=== PATIENT | male | born 1995 | race Two or more races ===

== ENCOUNTER 2020-05-11 15:42 | Emergency (ER) | payer MEDICAID, SELFPAY ==
[2020-05-11 17:11] VITALS: BP 140/76; PULSE 66; RESP 14; TEMP 37; O2SAT 100; BMI 18.2
[2020-05-11] MEDS: Tetracaine HCl/PF 0.5% Oph Sol 4 ML DROPS 2 DROP EYE-RIGHT (19:16)
[2020-05-11] MEDS: Fluorescein Sodium STRIP 1 STRIP EYE-RIGHT (19:16)
--- NOTE | 2020-05-11 19:50 | ED_ITS ---
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 chief complaint: eye pain Onset (ago): hour(s) Onset description: gradual Location: right eye Eye Symptoms: redness and foreign body sensation Place: work Mechanism: other (Foreign body) Severity: moderate Associated symptoms: none Treatments Prior to Arrival: none Related Data Patient tetanus UTD: Yes Previous Rx's Medication Instructions Recorded erythromycin 0.5 inch OPHTHALMIC (EYE) QID #3.5 05/11/20 g Allergies Allergy/AdvReac Type Severity Reaction Status Date / Time No Known Allergies Allergy Verified 05/11/20 18:48 Review of Systems Review of Systems: Constitutional: No Weight loss, No Fever, No Chills, No Night Sweats, No Fatigue, No Malaise ENT/Mouth: No Hearing loss, No Ear Pain, No Nasal Congestion, No Sinus Pain, No Hoarseness, No sore throat, No Rhinorrhea, No Swallowing Difficulty Eyes: No Eye Pain, No Swelling, + Redness, + Foreign Body, No Discharge, No Vision Changes Cardiovascular: No Chest Pain, No SOB, No Dyspnea on Exertion, No Orthopnea, No Edema, No Palpitations Respiratory: No Cough, No Sputum, No Wheezing, No Smoke Exposure, No Dyspnea Musculoskeletal: No joint pain, No Myalgias, No Joint Swelling Skin: No Skin Lesions, No rash Neuro: No Weakness, No Numbness, No Paresthesias, No Loss of Consciousness, No Dizziness, No Headache Psych: No Social Issues Heme/Lymph: No Bruising, No Bleeding,No Lymphadenopathy Endocrine: No Polyuria, No Polydipsia, No Temperature Intolerance Yes all other systems are reviewed and are negative [facility] Social History Social History Advance Directives: No Advance Directives Information Provided: Yes Physical Exam Vital Signs: Vital Signs: Last Vital Signs Temp 98.6 F 05/11/20 17:11 Pulse 66 05/11/20 17:11 Resp 14 05/11/20 17:11 BP 140/76 H 05/11/20 17:11 Pulse Ox 100 05/11/20 17:11 Body Mass Index 18.2 Reviewed Const: General: cooperative, healthy appearing, comfortable, no acute distress, well developed, alert and awake HENMT: Head: Yes normal to inspection Ears: hearing grossly normal bilaterally Eyes: Visual Irene: normal visual irene by confrontation Eyelids: Yes eyelids normal Conjunctivae: conjunctival abnormal (Erythema) right and diffuse Sclerae: sclerae normal Corneas: fluorescein used (No corneal abrasion) Pupils: Equal, round and reactive pupils present EOM: EOMs intact bilaterally Direct Ophthalmoscopy: normal light reflex Eyes/upper lids images: 1. Small piece of dark appearing particle removed after patient was given tetracaine and stained. Exam with Wood's lamp no corneal abrasion. No foreign body under the lids. Feels better after examination. Irrigated x1 with 10 cc ns. Neck: Neck: Yes normal visual inspection Chest: Chest palpation & inspection: normal inspection of the chest and normal palpation of entire chest wall Resp: Effort & Inspection: normal respiratory effort, no audible wheezes, no c ough and no respiratory distress : General: Yes no CVA tenderness Back/Spine/Pelvis: Back: no CVA tenderness Cervical Spine: No Lhermitte's sign positive and No pain with cervical ROM Thoracic/Lumbar Spine: thoracic and lumbar spine normal to inspection Skin: General skin exam: no rashes or lesions noted, elasticity normal and turgor normal Wounds: no wounds Nails: normal Neuro: Cranial nerves: Yes Equal, round and reactive pupils present Psych: Appearance: grossly normal and well kempt Discharge Plan Discharge Clinical Impression: Eye foreign bodies Qualifiers: Encounter type: initial encounter Laterality: right Qualified Code(s): T15.91XA - Foreign body on external eye, part unspecified, right eye, initial encounter Patient Disposition: Home, Self-Care Instructions: Eye Foreign Body (ED) Prescriptions: New erythromycin 5 mg/gram (0.5 %) ointment 0.5 inch ophthalmic (eye) QID Qty: 3.5 RF: 0 Referrals: Constantine Vargas [Physician] - 2 days Archie Jauregui PIPE CAULKER [Emergency Midlevel Provider] - 2 days Physician,Unknown [Primary Care Provider] - 2 days ([facility]) Stand Alone Forms: Work/School Release
== END 2020-05-11 20:05 | disposition home or self-care (01) ==
PROVIDERS: Emergency Provider Internal Medicine
DX: H57.11 Ocular pain, right eye (principal); T15.01XA Foreign body in cornea, right eye, initial encounter; Y29.XXXA Contact with blunt object, undetermined intent, initial encounter; Y93.89 Activity, other specified; Y92.9 Unspecified place or not applicable; Y99.9 Unspecified external cause status
CPT/HCPCS: 99283

== ENCOUNTER 2021-09-03 22:49 | Emergency (ER) | payer MEDICAID, SELFPAY ==
[2021-09-03 22:55] VITALS: BP 130/89; PULSE 92; O2SAT 100
[2021-09-03 23:08] VITALS: BP 118/80; PULSE 71; RESP 16; TEMP 37; O2SAT 100; BMI 20.9
[2021-09-03 23:37] LABS: COVID-19 Test Negative (Negative); IDNOW Serial# 16C4AD1C
--- NOTE | 2021-09-04 00:41 | ED_ITS ---
HPI - General Adult General Chief complaint: Headache <DARRYN Don Last Filed: 09/04/21 01:36> Stated complaint: n/v <DARRYN Don Last Filed: 09/04/21 01:36> Time Seen by Provider: 09/04/21 00:37 <DARRYN Don Last Filed: 09/04/21 01:36> Source: patient <DARRYN Don Last Filed: 09/04/21 01:36> Mode of arrival: ambulatory <DARRYN Don Last Filed: 09/04/21 01:36> Limitations: no limitations <DARRYN Don Last Filed: 09/04/21 01:36> History of Present Illness HPI narrative: This is a 26-year-old male no significant medical history presenting to the emergency department with headache, nausea and vomiting x4 hours. Patient tells me that he has had 3 episodes of nausea and vomiting it appears as though he vomited his food. He also tells me has a headache, diffuse, no vision changes or dizziness associated with it feels like his typical headache. He tells me he has not been around anyone who is sick. He denies chest pain, shortness of breath, diarrhea, abdominal pain, weakness, vision changes, dizziness. Patient has had no head trauma, not on blood thinners. <DARRYN Don Last Filed: 09/04/21 01:36> Onset (ago): hour(s) (4) <DARRYN Don Last Filed: 09/04/21 01:36> Location: head <DARRYN Don Last Filed: 09/04/21 01:36> Radiation: non-radiation <DARRYN Don Last Filed: 09/04/21 01:36> Severity: moderate <DARRYN Don Last Filed: 09/04/21 01:36> Pain Consistency: constant <DARRYN Don Last Filed: 09/04/21 01:36> Relieving factors: none <DARRYN Don Last Filed: 09/04/21 01:36> Exacerbating factors: none <DARRYN Don Last Filed: 09/04/21 01:36> Associated symptoms: denies other symptoms <DARRYN Don Last Filed: 09/04/21 01:36> Treatments prior to arrival: none <DARRYN Don Last Filed: 09/04/21 01:36> Related Data Home medications: Previous Rx's Medication Instructions Recorded erythromycin 5 mg/gram (0.5 %) eye 0.5 inch OPHTHALMIC (EYE) QID #3.5 05/11/20 ointment g ondansetron 4 mg disintegrating 4 mg PO ONCE PRN #10 tab 09/04/21 tablet <DARRYN Don Last Filed: 09/04/21 01:36> Allergies/adverse reactions: Allergies Allergy/AdvReac Type Severity Reaction Status Date / Time No Known Allergies Allergy Verified 09/03/21 23:11 <DARRYN Don Last Filed: 09/04/21 01:36> Review of Systems Review of Systems: Constitutional : No Weight loss, No Fever, No Chills, No Fatigue, No Malaise ENT/Mouth : No sore throat, No Rhinorrhea Eyes: No Eye Pain, No Swelling, No Redness Cardiovascular : No Chest Pain, No SOB, No Dyspnea on Exertion, No Orthopnea, No Edema, No Palpitations Respiratory : No Cough, No Sputum, No Wheezing Gastrointestinal : + Nausea, + Vomiting, No Diarrhea, No Constipation, No abdominal Pain, No Hematochezia, No Melena Genitourinary : No Dysuria, No Urinary Frequency, No Hematuria, Musculoskeletal : No joint pain, No Myalgias, No Joint Swelling Skin : No Skin Lesions, No rash Neuro : No Weakness, No Numbness, No Dizziness, + Headache Psych : No Anxiety/Panic, No Depression All other systems reviewed and are negative <DARRYN Don Last Filed: 09/04/21 01:36> Yes all other systems are reviewed and are negative <DARRYN Don Last Filed: 09/04/21 01:36> [facility] Past Medical History Attestation statement: The following information was validated with the patient. <DARRYN Don - Last Filed: 09/04/21 01:36> Source: old records reviewed and nursing notes reviewed <DARRYN Don - Last Filed: 09/04/21 01:36> Social History Social History: Social History Advance Directives: No Advance Directives Information Provided: Yes <DARRYN Don - Last Filed: 09/04/21 01:36> Physical Exam ED Vital Signs: Vital Signs - 24 hr 09/03/21 23:08 Temperature 98.6 F Pulse Rate 71 Respiratory Rate 16 Blood Pressure 118/80 Pulse Oximetry 100 BMI result Body Mass Index 20.9 VSS <DARRYN Don - Last Filed: 09/04/21 01:36> Appearance: Alert.? Oriented X3.? No acute distress.? Head: Normocephalic, atraumatic, no step-offs or deformities Eyes: Pupils equal, round and reactive to light.? Extraocular movements intact. ENT: Pharynx normal.? Neck: Normal inspection.? Neck supple.? CVS: Normal heart rate and rhythm.? Pulses normal.? Respiratory: No respiratory distress.? Breath sounds normal.? Abdomen: Soft and nontender.? Negative Rovsing, McBurney's point, Mccrary's, obturator and psoas. Skin: Skin warm and dry.? Normal skin color.? Normal skin turgor.? Extremities: No lower extremity edema.? No calf ttp. 5/5 strength to bilateral upper and lower extremities Back: No midline tenderness, no C-spine tenderness, full range of motion, no CVA tenderness bilaterally Neuro: Oriented X 3.? No motor deficit.? No sensory deficit. CN 2-12 intact <DARRYN Don - Last Filed: 09/04/21 01:36> Course Reevaluation(s) Reevaluation #1: Slight leukocytosis likely secondary to reactivity from vomiting. COVID negative. At this time nausea and vomiting likely secondary to viral infection. Patient was given Zofran and he has not had any other episodes of vomiting. He is not tender to palpation of the abdomen. For this reason an abdominal CT was not ordered. Unlikely appendicitis, cholecystitis. No signs of acute abdomen. Patient will be discharged home with Zofran. Gave him strict return precautions and advised him to return with new or worsening symptoms. Comfortable discharge home <DARRYN Don - Last Filed: 09/04/21 01:36> Time: 01:36 <DARRYN Don - Last Filed: 09/04/21 01:36> Medical Decision Making [facility] Narrative Medical decision making narrative: 0040 26 yo m no pmhx presents to the emergency department with complaints of nausea, vomiting and headache x4 hour. Headache feels like his typical headache no warning signs or red flags. Patient is not on blood thinners he denies head trauma. Physical examination benign. Not tender on palpation to abdomen. Negative Mccrary's, McBurney's point, Rovsing, obturators and psoas. Unlikely that this is appendicitis or cholecystitis. History and physical examination not consistent with ICH. No weakness no focal neuro deficits. No trauma. No need for head CT at this time. Plan is basic labs and Zofran. <DARRYN Don - Last Filed: 09/04/21 01:36> Medical Records Medical records reviewed: Yes I reviewed the patient's medical records. <DARRYN Don - Last Filed: 09/04/21 01:36> Lab Data Lab results reviewed: Yes I reviewed the patient's lab results. <DARRYN Don Last Filed: 09/04/21 01:36> Result diagrams: : 09/04/21 01:06 09/04/21 01:06 <DARRYN Don Last Filed: 09/04/21 01:36> Labs: Lab Results 09/03/21 09/04/21 09/04/21 Range/Units 23:19 01:06 01:06 WBC 12.5 H (4.8-10.8) X10*3/uL RBC 5.23 (4.60-5.80) X10*6/uL Hgb 13.5 L (14.0-18.0) g/dl Hct 42.0 (42.0-52.0) % MCV 80.3 (80.0-98.0) fL MCH 25.8 L (27.0-33.0) pg MCHC 32.1 (31.0-36.0) g/dl RDW 13.2 (11.0-16.0) % Plt Count 268 (160-400) X10*3/uL MPV 9.2 L (9.4-12.4) fL Immature Gran % (Auto) 0.3 (0.0-0.4) % Neut % (Auto) 81.3 H (45-73) % Lymph % (Auto) 12.6 L (20-40) % Fajardo % (Auto) 5.4 (2-11) % Eos % (Auto) 0.2 (0-4) % Baso % (Auto) 0.2 (0-2) % Lymph # (Auto) 1.6 (1.2-4.9) X10*3/uL Fajardo # (Auto) 0.7 (0.1-1.2) X10*3/uL Eos # (Auto) 0.0 (0.0-0.4) X10*3/uL Baso # (Auto) 0.0 (0.0-0.2) X10*3/uL Abs Immat Gran (auto) 0.04 H (0.00-0.03) X10*3/uL Absolute Neuts (auto) 10.2 H (2.0-8.3) x10*3/uL Absolute Nucleated RBC 0.000 (0.0-0.012) X10*3/uL Nucleated RBC % (auto) 0.0 (0.0-0.2) /100WBC Sodium 137 (135-145) mmol/L Potassium 4.3 (3.3-5.1) mmol/L Chloride 102 (96-108) mmol/L Carbon Dioxide 25 (22-29) mmol/L Anion Gap 14 (12-20) BUN 21 H (9-16) mg/dL Creatinine 0.82 (0.5-1.4) mg/dL Estim Creat Clear Calc 113.8 Estimated GFR > 60 Random Glucose 107 (60-115) mg/dL Calcium 9.6 (8.4-10.2) mg/dL Total Bilirubin 0.3 (0.0-1.0) mg/dL AST 18 (5-37) U/L ALT 13 (0-40) U/L Alkaline Phosphatase 50 (39-117) U/L Total Protein 7.7 (6.5-8.0) g/dL Albumin 4.5 (3.5-5.0) g/dL Lipase 25 (8-78) U/L COVID-19 ([facility]) Negative (Negative) COVID-19 Clin Com See Note <DARRYN Don Last Filed: 09/04/21 01:36> Critical Care Time Critical Care Time Critical Care Time: No <DARRYN Don Last Filed: 09/04/21 01:36> Discharge Plan Discharge Clinical Impression: Nausea & vomiting <DARRYN Don Last Filed: 09/04/21 01:36> Patient Disposition: Home, Self-Care <DARRYN Don Last Filed: 09/04/21 01:36> Instructions: Acute Nausea and Vomiting (ED) <DARRYN Don Last Filed: 09/04/21 01:36> Additional Instructions: Take your medications as prescribed. If you were prescribed antibiotics today, it is important that you take your medication to their entirety, do not skip any doses, do not finish them early. Follow-up with your primary care provider this week. Return to the emergency department with new or worsening symptoms. Such as fevers, chills, chest pain, shortness of breath, nausea, vomiting, dizziness, headache, vision changes, lethargy In case of emergency call 911 <DARRYN Don Last Filed: 09/04/21 01:36> Prescriptions: New ondansetron 4 mg tablet,disintegrating 4 mg PO ONCE PRN (Reason: nausea and vomiting) Qty: 10 0RF No Action erythromycin 5 mg/gram (0.5 %) ointment 0.5 inch ophthalmic (eye) QID Qty: 3.5 0RF <DARRYN Don Last Filed: 09/04/21 01:36> Referrals: Physician,Unknown J [Primary Care Provider] - 2 days <DARRYN Don Last Filed: 09/04/21 01:36> Stand Alone Forms: Work/School Release <DARRYN Don - Last Filed: 09/04/21 01:36> Interventions: ED Discharge Assessment Last Done: 09/04/21 01:48 <DARRYN Don - Last Filed: 09/04/21 01:36> Discharge Date/Time: 09/04/21 01:48 <DARRYN Don - Last Filed: 09/04/21 01:36>
[2021-09-04] MEDS: Ondansetron ODT 4 MG TAB.RAPDIS TRANSLINGU (01:06)
[2021-09-04 01:11] LABS: MANUAL DIFF FLAG NO
[2021-09-04 01:12] LABS: Basophils Percent Auto 0.2 % (0-2); Eosinophils Percent Auto 0.2 % (0-4); Hemoglobin 13.5 g/dl (14.0-18.0); Imm Gran Abs Auto 0.04 X10*3/uL (0.00-0.03); Imm Gran Pct Auto 0.3 % (0.0-0.4); Lymphocytes Absolute Auto 1.6 X10*3/uL (1.2-4.9); Lymphocytes Percent Auto 12.6 % (20-40); Mean Corpuscular HGB Conc 32.1 g/dl (31.0-36.0); Mean Corpuscular Hemoglobin 25.8 pg (27.0-33.0); Mean Corpuscular Volume 80.3 fL (80.0-98.0); Mean Platelet Volume 9.2 fL (9.4-12.4); Monocytes Absolute Auto 0.7 X10*3/uL (0.1-1.2); Monocytes Percent Auto 5.4 % (2-11); Neutrophils Absolute Auto 10.2 x10*3/uL (2.0-8.3); Neutrophils Percent Auto 81.3 % (45-73); Platelet Count 268 X10*3/uL (160-400); Red Blood Count 5.23 X10*6/uL (4.60-5.80); Red Cell Distribution Width 13.2 % (11.0-16.0); White Blood Count 12.5 X10*3/uL (4.8-10.8)
[2021-09-04 01:31] LABS: Alanine Aminotransferase 13 U/L (0-40); Albumin Level 4.5 g/dL (3.5-5.0); Alkaline Phosphatase 50 U/L (39-117); Anion Gap 14 (12-20); Aspartate Amino Transferase 18 U/L (5-37); Bilirubin Total 0.3 mg/dL (0.0-1.0); Blood Urea Nitrogen 21 mg/dL (9-16); Calcium 9.6 mg/dL (8.4-10.2); Carbon Dioxide 25 mmol/L (22-29); Chloride 102 mmol/L (96-108); Creatinine Clr Calc Pharmacy 113.8; Estimated Glomerular Filt Rate > 60; Glucose Random 107 mg/dL (60-115); Lipase 25 U/L (8-78); Potassium 4.3 mmol/L (3.3-5.1); Sodium 137 mmol/L (135-145); Total Protein 7.7 g/dL (6.5-8.0)
== END 2021-09-04 01:48 | disposition home or self-care (01) ==
PROVIDERS: Physician Assistant; Emergency Provider Emergency Medicine
DX: R11.2 Nausea with vomiting, unspecified (principal); R51.9 Headache, unspecified; Z20.822 Contact with and (suspected) exposure to COVID-19
CPT/HCPCS: 36415; 80053; 83690; 85025; 87635; 99283

== ENCOUNTER 2021-11-04 07:48 | Emergency (ER) | payer OTHER, MEDICAID, SELFPAY ==
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
[2021-11-04 08:19] VITALS: BP 143/92; PULSE 72; RESP 18; TEMP 36.1; O2SAT 100; BMI 19.3
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
== END 2021-11-04 10:24 | disposition home or self-care (01) ==
PROVIDERS: Emergency Provider Emergency Medicine
DX: S80.01XA Contusion of right knee, initial encounter (principal); S20.222A Contusion of left back wall of thorax, initial encounter; M54.2 Cervicalgia; V43.52XA Car driver injured in collision with other type car in traffic accident, initial encounter; Y93.9 Activity, unspecified; Y92.410 Unspecified street and highway as the place of occurrence of the external cause; Y99.9 Unspecified external cause status
CPT/HCPCS: 71046; 72040; 73010; 73562; 99283

== ENCOUNTER 2025-06-14 10:16 | Emergency (ER) | payer MEDICAID, SELFPAY ==
--- NOTE | ~2025-06-14 | XR_ITS ---
CLINICAL HISTORY: cough 2 view chest x-ray. Comparison: None Findings: The lungs are adequately expanded. No focal consolidation. No effusion or pneumothorax. Cardiac and mediastinal contours are within normal limits. No acute osseous abnormality Impression: No acute process. This document has been electronically signed by: Siva Verdugo MD on 06/14/2025 12:00:08
[2025-06-14 10:20] VITALS: BP 126/72; PULSE 106; RESP 18; TEMP 37.1; O2SAT 98; BMI 19.7
[2025-06-14 10:47] LABS: Strep A Nucleic Acid Negative (Negative)
[2025-06-14 11:26] LABS: Resp Syncy Virus RNA Qual PCR NEGATIVE (Negative); SARS COV2 PCR INHOUSE NEGATIVE (Negative)
--- NOTE | 2025-06-14 11:44 | ED_ITS ---
HPI - General Adult General Chief complaint: General Medical Stated complaint: has a cold Time Seen by Provider: 06/14/25 11:35 Source: patient Mode of arrival: ambulatory Limitations: no limitations History of Present Illness ED Provider: Milla Gross APRN HPI narrative: 29-year-old male with no known medical history presents the ER with complaints of 48 hours of chills, cough, diarrhea and sore throat. Denies fever, chest pain, abdominal pain, shortness of breath, skin rash, neck pain/stiffness. No recent travel or sick contact. Related Data Previous Rx's ?Medication ?Instructions ?Recorded erythromycin 5 mg/gram (0.5 %) eye 0.5 inch ophthalmic (eye) QID 05/11/20 ointment Right eye #3.5 grams ondansetron 4 mg disintegrating 4 mg PO ONCE PRN nause a and 09/04/21 tablet vomiting #10 tabs Allergies Allergy/AdvReac Type Severity Reaction Status Date / Time No Known Allergies Allergy Verified 06/14/25 10:22 Review of Systems Review of Systems: Yes all other systems are reviewed and are negative Constitutional: Constitutional: Reports no additional constitutional complaints, Denies body ache(s), Reports chills, Denies fever(s), Denies headache(s) and Denies weakness Eyes: Eyes: Reports no additional eye complaints and Denies change in vision ENT: Reports system reviewed and no additional complaints, except as documented, Denies dizziness, Denies headache(s), Denies nasal congestion, Denies nasal discharge, Denies neck pain and Reports sore throat Cardiovascular: Cardiovascular: Reports no additional cardiovascular complaints, Denies chest pain, Denies leg edema and Denies dyspnea Respiratory: Respiratory: Reports no additional respiratory complaints, Reports cough and Denies dyspnea Gastrointestinal: Gastrointestinal: Reports no additional gastrointestinal complaints, Denies abdominal pain, Reports diarrhea, Denies nausea and Denies vomiting Genitourinary: Genitourinary: Denies urinary incontinence Musculoskeletal: Musculoskeletal: Reports no additional musculoskeletal complaints, Denies back pain, Denies arthralgias, Denies joint swelling, Denies neck pain, Denies numbness and Denies tingling Integumentary/Breasts: Skin/Breast: Reports system reviewed and no additional complaints, except as docu and Denies rash Neurologic: Reports system reviewed and no additional complaints, except as documented, Denies Abnormal speech present, Denies dizziness, Denies headache(s), Denies numbness, Denies tingling and Denies weakness PMFSH Past Medical History Attestation statement: The following information was validated with the patient. Source: old records reviewed and nursing notes reviewed Social History Social History Advance Directives: No Advance Directives Information Provided: Yes Do you have a plan to hurt others: No Plan Physical Exam ED Vital Signs: Vital Signs - 24 hr 06/14/25 10:20 06/14/25 11:48 Temperature 98.8 F 98.8 F Pulse Rate 106 H 106 H Respiratory Rate 18 18 Blood Pressure 126/72 126/72 Pulse Oximetry 98 98 Oxygen Delivery Method Room Air Room Air BMI result Body Mass Index 19.7 Const General: cooperative, healthy appearing, comfortable and no acute distress Orientation/consciousness: patient oriented x3 Limitations: no limitations HENMT Head: Yes normal to inspection Ears: hearing grossly normal bilaterally and TM's normal bilaterally General nose exam: Normal external nose present Face and sinus: Yes normal facial exam Mouth: Normal oral and palatal mucosa present Throat: Yes posterior oropharynx normal, Yes tonsils normal and Yes uvula midline Eyes General: appearance normal, both eyes and all related structures Pupils: Equal, round and reactive pupils present Neck Neck: Yes normal visual inspection, Yes full ROM, Yes no lymphadenopathy and Yes no meningeal signs Chest Chest palpation & inspection: normal inspection of the chest Resp Effort & Inspection: normal respiratory effort Auscultation: clear to auscultation bilaterally Cardio Rate: regular rate Rhythm: regular rhythm Peripheral pulses: Peripheral pulses 2+ throughout GI Inspection: Yes normal to inspection Palpation (GI): Soft to palpation and nontender Auscultation: normal bowel sounds Back/Spine/Pelvis Thoracic/Lumbar Spine: thoracic and lumbar spine normal to inspection Skin General skin exam: no rashes or lesions noted Neuro General: patient oriented x3, no meningeal signs, no focal motor deficits and normal sensation to monofilament Cranial nerves: Yes Equal, round and reactive pupils present Cognition (Neuro): normal cognition Speech: No Abnormal speech present Gait exam (Neuro): Normal gait present Motor exam (neuro): 5/5 motor strength present throughout Extrem General: Yes normal to inspection Medical Decision Making Medical Decision Making MDM Narrative: 29-year-old male with no known medical history presents the ER with complaints of 48 hours of chills, cough, diarrhea and sore throat. Denies fever, chest pain, abdominal pain, shortness of breath, skin rash, neck pain/stiffness. No recent travel or sick contact. exam is benign Vitals are stable. Influenza a is positive I independently reviewed the chest x-ray which shows no signs of pneumonia. Patient is aware that final review is pending by Radiology recommend supportive measures, fluids at home, Motrin and Tylenol as needed. Discussed Tamiflu and declined. Reviewed worrisome signs and symptoms of when to return to the emergency room. Comfortable plan for discharge home. Differential Diagnosis Differential Diagnoses: The differential diagnosis associated with the presentation includes Influenza, strep pharyngitis, otitis media, viral syndrome, pneumonia Admission/Observation Consideration of admission/observation: Escalation of care including admission/observation considered influenza a positive. no hypoxia or tachypnea requiring supplemental oxygen and or admission Lab Data [facility] Lab Attestation statement: I reviewed the patient's lab results. Labs: Lab Results 06/14/25 Range/Units 10:32 Influenza Type A (PCR) POSITIVE A (Negative) Influenza Type B (PCR) NEGATIVE (Negative) RSV RNA Qual (PCR) NEGATIVE (Negative) SARS-CoV-2 RNA (RT-PCR) NEGATIVE (Negative) S. pyogenes GrpA KIM Negative (Negative) Independent Interpretation I performed an independent interpretation of an: Plain X-Ray Interpretation: I independently viewed the x-ray and agree with the radiologist's Radiology Impression Discussion of test interpretation with radiology: I have reviewed the radiologist's reading. Radiologist Impression: [address] [address] XRay Report Signed Patient: April Rock MR#: [id number] : 1995 Acct:[id number] Age/Sex: 29 / M ADM Date: 06/14/25 Loc: HO.ED Attending Dr: Ordering Physician: Kirsten Eden Date of Service: 06/14/25 Procedure(s): XR chest 2V Accession Number(s): [id number] cc: Kirsten Eden; Physician,Unknown ~ Reason for Exam: cough CLINICAL HISTORY: cough 2 view chest x-ray. Comparison: None Findings: The lungs are adequately expanded. No focal consolidation. No effusion or pneumothorax. Cardiac and mediastinal contours are within normal limits. No acute osseous abnormality Impression: No acute process. This document has been electronically signed by: Siva Verdugo MD on 06/14/2025 12:00:08 Prescription Management I considered prescription management with: Antiviral Discharge Plan Discharge Clinical Impression: Influenza A Patient Disposition: Home, Self-Care Instructions: Influenza (ED) Additional Instructions: Influenza A PCR POSITIVE A Negative Influenza B PCR NEGATIVE Negative RSV RNA QualPCR NEGATIVE Negative SARSCOV2 RT-PCR NEGATIVE Negative Alternate motrin/tylenol for pain or fever Increase fluids, rest Follow-up with your PCP as needed Prescriptions: No Action erythromycin 5 mg/gram (0.5 %) ointment 0.5 inch ophthalmic (eye) QID Qty: 3.5 0RF ondansetron 4 mg tablet,disintegrating 4 mg PO ONCE PRN (Reason: nausea and vomiting) Qty: 10 0RF Referrals: [place] [Physician, Medical] Stand Alone Forms: Work/School Release Interventions: ED Discharge Assessment Last Done: 06/14/25 11:48 Print Language: Amharic
[2025-06-14 11:48] VITALS: BP 126/72; PULSE 106; RESP 18; TEMP 37.1; O2SAT 98
--- OUTSIDE RECORDS SUMMARY | 2025-06-14 11:50 | XMS_ITS | Clinical Summary ---
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 Name Role Phone Unavailable Primary Care Provider Unavailabl e Social History Tobacco Use Types Packs/Day Years Used Date Smoking Tobacco: Never Assessed Sex and Gender Information Value Date Recorded Sex Assigned at Male 04/25/2022 10:15 AM EDT Legal Sex Male 10:15 AM EDT Gender Identity Male 04/25/2022 10:15 AM EDT Sexual Orientation Straight 04/25/2022 10 :15 AM EDT Last Filed Vital Signs Vital Sign Reading Time Taken Comments Blood Pressure 110/80 03/22/2022 12:09 AM EDT Pulse 60 03/22/2022 12:09 AM EDT Temperature - - Respiratory Rate - - Oxygen Saturation - - Inhaled Oxygen Concentration - - Weight 51.9 kg (114 lb 6.4 oz) 03/22/2022 12:09 AM EDT Height 166 cm (5' 5.35 ) 03/22/2022 12:09 AM EDT Body Mass Index 18.83 03/22/2022 12:09 AM EDT Plan of Treatment Health Maintenance Due Date Last Done Comments Depression Screening 1995 Disability Screening 1995 Alcohol/Substance Use Screening 2007 Tobacco Screening 2007 Family Planning (PISQ) 09/01/2010 Hepatitis B Vaccines (1 of 3 - 19+ 3-dose series) 09/01/2014 HPV Vaccines (2 - Male 3-dos e series) 07/03/2015 06/05/2015 COVID-19 Vaccine (1 - 2024-2 6 season) 2025 Influenza Vaccine (#1) 2025 , 04/16/2020 DTaP/Tdap/Td Vaccines (2 - T d or Tdap) 03/22/2032 03/22/2022 Zoster Vaccines (1 of 2) 09/01/2045 RSV Patients and Patients Aged 60 years or older (1 - 1-dose 75+ series) 09/01/2070 Hepatitis A Vaccines Aged Out 06/05/2015 No long er eligible based on patient's age to complete this topic Meningococcal Vaccine Aged Out 06/05/2015 No dariana janelle eligible based on patient's age to complete this topic HIV Screening Completed 03/22/2022, 04/27/2020 Hepatitis C Screening Completed 03/22/2022 , 04/27/2020 HIB Vaccines Aged Out No longer eligi ble based on patient's age to complete this topic IPV Vaccines Aged Out No longer eligi ble based on patient's age to complete this topic Meningococcal B Vaccine Aged Out No l onger eligible based on patient's age to complete this topic Pneumococcal Vaccine: Pediatrics (0 to 5 Years) and At-Risk Patients (6 to 49) Years Aged Out No longer eligible b ased on patient's age to complete this topic RSV under 20 months Aged Out No longe r eligible based on patient's age to complete this topic Rotavirus Vaccines Aged Out No longer eligible based on patient's age to complete this topic Procedures Procedure Name Priority Date/Time Associated Diagnosis Comments ZZZ HISTORICAL HEPATITIS C AB W/REFL TO HCV RNA, QN, PCR Routine 03/22/2022 10:31 AM EDT HIV 1/2 ANTIGEN/ANTIBODY, FOURTH GENERATION W/RFL Routine 03/22/2022 10:31 AM EDT from Last 3 Months or Most Recently Relevant to Health Maintenance Results * HEPATITIS C AB W/REFL TO HCV RNA, QN, PCR (03/22/2022 10:31 AM EDT) HEPATITIS C ANTIBODY NON-REACT CORTNEY NON-REACT CORTNEY [facility] INDEX 0.08 <1.00 [facility] Comment: HCV antibody was non-reactive. There is no laboratory evidence of HCV infection. In most cases, no further action is required. However, if recent HCV exposure is suspected, a test for HCV RNA (test code 12722) is suggested. For additional information please refer to http://education.RealPage/faq/LIO51c9 (This link is being provided for informational/ educational purposes only.) 03/22/2022 10:3 1 AM EDT Ilia Lozano MD HISTORICAL/NON ORDERABLE LABS Fi nal Result Performing Organization Address [facility] de Phone Number [facility] [address] [place] [address], * HIV 1/2 ANTIGEN/ANTIBODY,FOURTH GENERATION W/RFL (03/22/2022 10:31 AM EDT) HIV-1/2 ANTIGEN AND ANTIBODIES, 4TH GENERATION W/ REFLEX NON-REACT CORTNEY NON-REACT CORTNEY [facility] Comment: HIV-1 antigen and HIV-1/HIV-2 antibodies were not detected. There is no laboratory evidence of HIV infection. PLEASE NOTE: This information has been disclosed to you from records whose confidentiality may be protected by state law. If your state requires such protection, then the state law prohibits you from making any further disclosure of the information without the specific written consent of the person to whom it pertains, or as otherwise permitted by law. A general authorization for the release of medical or other information is NOT sufficient for this purpose. For additional information please refer to http://education.Bingo.com.NetScaler/faq/YRS764 (This link is being provided for informational/ educational purposes only.) The performance of this assay has not been clinically validated in patients less than 2 years old. 03/22/2022 10:3 1 AM EDT Ilia Lozano MD LAB BLOOD ORDERABLES Final Resul t Performing Organization Address [facility] Co de Phone Number [facility] [address] [place] [address], from Last 3 Months or Most Recently Relevant to Health Maintenance
--- OUTSIDE RECORDS SUMMARY | 2025-06-14 11:50 | XMS_ITS | Clinical Summary ---
Author Organization [facility] Address [address] [place] [address] Care Team Providers Care Global Account Executive Name Role Phone Unavailable Primary Care Provider Unavailabl e Social History Tobacco Use Types Packs/Day Years Used Date Smoking Tobacco: Never Assessed Sex and Gender Information Value Date Recorded Sex Assigned at Not on file Legal Sex Male 3:42 PM EDT Gender Identity Not on file Sexual Orientation Not on file Plan of Treatment Health Maintenance Due Date Last Done Comments DTaP,Tdap,and Td Vaccines (1 - Tdap) 09/01/2014 Hepatitis B Vaccines (1 of 3 - 19+ 3-dose series) 09/01/2014 HPV Vaccines (1 - 3-dose SCD M series) 09/01/2022 HIV Screening 04/21/2024 Hepatitis C Screening 04/21/2024 Social Influencers of Health Screening 04/21/2024 Depression Screening 06/26/2024 COVID-19 Vaccine (1 - 2024-2 6 season) 2025 Influenza Vaccine (#1) 2025 RSV Immunization Adult Patie nts (1 - 1-dose 75+ series) 09/01/2070 HIB Vaccines Aged Out No longer eligi ble based on patient's age to complete this topic Hepatitis A Vaccines Aged Out No long er eligible based on patient's age to complete this topic IPV Vaccines Aged Out No longer eligi ble based on patient's age to complete this topic MMR Vaccines Aged Out No longer eligi ble based on patient's age to complete this topic Meningococcal ACWY Vaccine Aged Out N o longer eligible based on patient's age to complete this topic Meningococcal B Vaccine Aged Out No l onger eligible based on patient's age to complete this topic Pneumococcal Vaccine: Pediat rics (0 to 5 Years) and At-Risk Patients (6 to 49 Years) Aged Out No longer eligible b ased on patient's age to complete this topic RSV Immunization Patients Un carlos a 20 months Aged Out No longer eligible b ased on patient's age to complete this topic Varicella Vaccines Aged Out No longer eligible based on patient's age to complete this topic
== END 2025-06-14 12:07 | disposition home or self-care (01) ==
LOC: HO.ED 11:49
PROVIDERS: Emergency Provider Emergency Medicine
DX: J10.1 Influenza due to other identified influenza virus with other respiratory manifestations (principal); R05.9 Cough, unspecified; R19.7 Diarrhea, unspecified
CPT/HCPCS: 71046; 87637; 87651; 99282; 99283

== ENCOUNTER → 2025-06-14 10:34 | Outpatient (BNV) | payer MEDICAID, SELFPAY | PROVIDERS: Emergency Provider Emergency Medicine; Visit Provider Radiology Vascular & Interventional Radiology | DX: R05.9 Cough, unspecified (principal) | CPT/HCPCS: 71046 ==